=== PATIENT | female | born 1990 | race Caucasian/White ===

== ENCOUNTER → 2024-11-23 07:12 | Outpatient (REF) | payer BC, SELFPAY | LOC: REG 07:12 | PROVIDERS: ATTENDING PHYSICIAN Obstetrics & Gynecology; FAMILY PHYSICIAN Family Medicine | DX: O09.90 Supervision of high risk pregnancy, unspecified, unspecified trimester (principal) | CPT/HCPCS: 36415; 86850; 86900; 86901; J2790 ==

== ENCOUNTER → 2025-02-28 11:12 | Outpatient (REF) | payer BC, SELFPAY | LOC: PNTC 11:12 | PROVIDERS: ATTENDING PHYSICIAN Obstetrics & Gynecology | DX: O09.513 Supervision of elderly primigravida, third trimester (principal) | CPT/HCPCS: 36415; 86850; 86900; 86901; 96372; J2790 ==

== ENCOUNTER 2025-05-06 08:40 | Inpatient (IN) | payer BC, SELFPAY ==
[2025-05-06 08:50] VITALS: BP 139/80; BMI 34.5
[2025-05-06 09:50] LABS: Hematocrit 31.9 % (37.0-47.0); Hemoglobin 10.7 g/dL (12.0-16.0); Mean Corp Hgb Conc. 33.5 g/dL (33.0-37.0); Mean Corpuscular Volume 92.2 fL (81.0-99.0); Nucleated Red Blood Cells % 0 %; Platelet Count 160 10^3/uL (130-400); Red Cell Dist. Width 13.4 % (11.5-14.5)
[2025-05-06 10:12] LABS: ALT (SGPT) 35 U/L (0-35); AST (SGOT) 23 U/L (14-36); Albumin 3.4 g/dl (3.5-5.0); Alkaline Phosphatase 107 U/L (38-126); Blood Urea Nitrogen 10 mg/dl (7-17); Calcium 8.8 mg/dl (8.4-10.2); Carbon Dioxide 19 mmol/L (22-30); Chloride 110 mmol/L (98-107); Estimated Creatinine Clearance > 125 ml/min; Glucose 99 mg/dl (70-99); Potassium 4.3 mmol/L (3.5-5.1); Sodium 135 mmol/L (135-145); Total Protein 5.9 g/dl (6.3-8.2); eGFR > 60.00
[2025-05-06] MEDS: PITOCIN 30 UNITS/NSS 500 ML IV (14:24)
[2025-05-06] MEDS: LR 1000 IV ×3 (14:24→22:39)
[2025-05-06] MEDS: FENTANYL/BUPIVACAINE 100 EPIDURAL (18:03)
[2025-05-06] MEDS: SUBLIMAZE 100 MCG EPIDURAL (18:03)
[2025-05-07] MEDS: MOTRIN 600 MG PO ×3 (02:50→20:35)
[2025-05-07 06:12] LABS: Hematocrit 28.1 % (37.0-47.0); Hemoglobin 9.7 g/dL (12.0-16.0)
[2025-05-07] MEDS: PRENATAL PLUS 1 TABLET PO (08:25)
[2025-05-07] MEDS: COLACE 100 MG PO ×2 (08:25→19:29)
[2025-05-07] MEDS: CLARITIN 10 MG PO (08:25)
[2025-05-07] MEDS: RHOGAM 300 MCG IM (13:29)
[2025-05-07 13:35] LABS: Syphilis/T. pallidum Ab Reflex Negative (Negative)
--- NOTE | 2025-05-08 02:47 | DOWNTIME ---
There was a [employer] Downtime on 05/08/2025 from 0100 to 05/08/2025 at 0235. Downtime documentation of patient's care, including medication administrations, has been reconciled in the electronic record per guidelines. Refer to the
patient's paper chart under the miscellaneous tab to see printed paper medication records and downtime forms.
[2025-05-08] MEDS: MOTRIN 600 MG PO (08:14)
[2025-05-08] MEDS: PRENATAL PLUS 1 TABLET PO (08:14)
[2025-05-08] MEDS: CLARITIN 10 MG PO (08:14)
[2025-05-08] MEDS: FEOSOL 325 MG PO (08:14)
[2025-05-08] MEDS: COLACE 100 MG PO (08:15)
[2025-05-08] MEDS: M-M-R II 0.5 ML SC (08:17)
--- NOTE | 2025-05-08 10:39 | CM ---
CM reviewed chart, mother seen bedside with father and child, Billy. Mother resides with and child in the home, Billy is mothers first child. Mother confirms art editor: WARREN Cottrell. Mother confirms supplies in home for son. CM discussed
support system, post anxiety/depression, mother agreeable to referral to [facility]. Mother confirms address- [address]. [place] [id number], cell phone [phone]. CM will continue to follow for all discharge planning needs.
Plan; home with family, referral to [facility]
== END 2025-05-08 11:30 | disposition home or self-care (01) | DRG 807 ==
LOC: LDRP 08:40
PROVIDERS: Obstetrics & Gynecology; ADMITTING PHYSICIAN Obstetrics & Gynecology
PROC: 0HQ9XZZ Repair Perineum Skin, External Approach (ICD-10-PCS; 2025-05-06)
PROC: 10E0XZZ Delivery of Products of Conception, External Approach (ICD-10-PCS; 2025-05-06)
PROC: 3E0234Z Introduction of Serum, Toxoid and Vaccine into Muscle, Percutaneous Approach (ICD-10-PCS; 2025-05-07)
DX: O42.02 Full-term premature rupture of membranes, onset of labor within 24 hours of rupture (principal); Z37.0 Single live birth; Z3A.38 38 weeks gestation of pregnancy; O70.0 First degree perineal laceration during delivery; O90.81 Anemia of the puerperium; D64.9 Anemia, unspecified; Z82.49 Family history of ischemic heart disease and other diseases of the circulatory system
CPT/HCPCS: 80053; 82570; 84156; 85014; 85018; 85025; 85461; 86780; 86850; 86870; 86900; 86901; 90707; J2790